=== PATIENT | male | born 1950 | race Caucasian/White ===

== ENCOUNTER → 2019-06-08 | Outpatient (CLI) | payer MEDICARE, OTHER ==
[~2019-06-08] MED LIST: FEBU40TA PO; LEVO137T25 PO; LISI-167 PO; OXYC5TAB3 PO
== END | disposition home or self-care (01) ==
LOC: CFH 13:51
PROVIDERS: ATTEND Internal Medicine Endocrinology, Diabetes & Metabolism
DX: M81.0 Age-related osteoporosis without current pathological fracture (principal)
CPT/HCPCS: 77080

== ENCOUNTER 2019-07-12 11:25 | Outpatient (CLI) | payer MEDICARE, OTHER ==
[~2019-07-12] VITALS: Ht 180.3 cm; Wt 84.9 kg
[2019-07-12] MEDS ORDERED: LOVA10TA PO (11:31)
[2019-07-12] MEDS ORDERED: MOME13HF3 INH (11:31)
[2019-07-12] MEDS ORDERED: CHOL100011 PO (11:31)
[2019-07-12] MEDS ORDERED: FINA5TAB4 PO (11:31)
[2019-07-12] MEDS ORDERED: ALLO100T30 PO (11:31)
[2019-07-12] MEDS ORDERED: ALEN70TA6 PO (11:31)
[2019-07-12] MEDS ORDERED: TEST1.25 TD (11:31)
[2019-07-12 11:40] VITALS: BP 144/91
[2019-07-12 12:25] LABS: CALCIUM 9.2 mg/dL (8.5-10.1); CREATININE 1.44 mg/dL (0.7-1.3)
[2019-07-12] MEDS ORDERED: DENOSUMAB 60 MG/ML SQ ONE (13:00)
== END 2019-07-12 23:59 | disposition home or self-care (01) ==
LOC: INFUSION 11:25
PROVIDERS: ATTEND Internal Medicine Endocrinology, Diabetes & Metabolism
DX: M81.0 Age-related osteoporosis without current pathological fracture (principal); C73 Malignant neoplasm of thyroid gland; E29.1 Testicular hypofunction; N52.8 Other male erectile dysfunction; R25.2 Cramp and spasm; I10 Essential (primary) hypertension; M10.9 Gout, unspecified; J45.909 Unspecified asthma, uncomplicated
CPT/HCPCS: 36415; 82310; 82565; 96372; J0897